=== PATIENT | female | born 1995 | race American Indian/Alaskan Native ===

== ENCOUNTER 2018-01-28 17:05 | Emergency (ER) | payer MEDICAID ==
[2018-01-28 17:26] VITALS: RESP 18; TEMP 99.3
[2018-01-28] MEDS ORDERED: Sodium Chloride 0.9% 1,000 ML IV ONE (18:38)
[2018-01-28] MEDS ORDERED: Alum-Mag Hydrox-Simethicone Susp (30 mL) PO ONE (18:40)
--- NOTE | 2018-01-28 18:51 | C.PDOC ---
History Of Present Illness 22 y/o female presents to the ED complaining of abdominal pain and diarrhea. She has had the pain for the past month and stated she developed diarrhea yesterday. Denies any nausea, vomiting, chest pain, SOB, or fever. LMP was 01/01. Time Seen by Provider: 01/28/18 18:15 Chief Complaint (Nursing): Abdominal Pain History Per: Patient History/Exam Limitations: no limitations Onset/Duration Of Symptoms: Days Current Symptoms Are (Timing): Still Present Associated Symptoms: Diarrhea Past Medical History Reviewed: Historical Data, Nursing Documentation, Vital Signs Vital Signs: Last Vital Signs Temp 99.3 F 01/28/18 17:24 Pulse 68 01/28/18 17:24 Resp 18 01/28/18 17:24 BP 133/83 01/28/18 17:24 Pulse Ox 98 01/28/18 17:24 - Medical History PMH: No Chronic Diseases Surgical History: No Surg Hx Family History: States: No Known Family Hx - Social History Hx Alcohol Use: No Hx Substance Use: No - Immunization History Hx Tetanus Toxoid Vaccination: No Hx Influenza Vaccination: No Hx Pneumococcal Vaccination: No Review Of Systems Except As Marked, All Systems Reviewed And Found Negative. Constitutional: Negative for: Fever, Chills Cardiovascular: Negative for: Chest Pain Respiratory: Negative for: Cough, Shortness of Breath Gastrointestinal: Positive for: Abdominal Pain, Diarrhea. Negative for: Nausea, Vomiting, Hematochezia, Hematemesis Skin: Negative for: Rash Neurological: Negative for: Weakness, Headache Physical Exam - Physical Exam Appears: Well, Non-toxic, No Acute Distress Skin: Warm, Dry, No Rash Head: Atraumatic, Normacephalic Eye(s): bilateral: Normal Inspection, PERRL, EOMI Oral Mucosa: Moist Neck: Normal ROM Chest: Symmetrical Cardiovascular: Rhythm Regular, No Murmur Respiratory: Normal Breath Sounds, No Accessory Muscle Use, Other (No respiratory distress) Gastrointestinal/Abdominal: Soft, Tenderness (epigastric tenderness), No Distention, No Guarding, No Rebound Back: No CVA Tenderness, No Vertebral Tenderness Extremity: Bilateral: Atraumatic, Normal Color And Temperature, Normal ROM Pulses: Left Dorsalis Pedis: Normal, Right Dorsalis Pedis: Normal Neurological/Psych: Oriented x3, Normal Speech ED Course And Treatment - Laboratory Results Result Diagrams: 01/28/18 18:52 01/28/18 18:52 O2 Sat by Pulse Oximetry: 98 (RA) Pulse Ox Interpretation: Normal Medical Decision Making Medical Decision Making: Impression: Gastritis, r/o Plan: - Labs - IV fluids - 20 mg IV Pepcid - 30 ml PO Maalox - Reassess Labs reviewed, K 3.5. (-) Beta-HCG. Urine demonstrates UTI. Will replenish potassium and administer 1 gm IV rocephin. Plan is to discharge patient home on Cipro. Counseled regarding diagnosis and follow up instructions. Disposition Counseled Patient/Family Regarding: Studies Performed, Diagnosis, Need For Followup, Rx Given - Disposition [place] [facility] [place] [facility] [Outside] [facility] [place] [Outside] Disposition: HOME/ ROUTINE Disposition Time: 20:18 Condition: STABLE Additional Instructions: Follow up with medicine clinic and take your meds as directed. Prescriptions: Ciprofloxacin HCl [Cipro] 250 mg PO Q12 5 Days #10 tablet Famotidine [Pepcid] 40 mg PO DAILY #15 tablet Ibuprofen [Motrin] 600 mg PO Q6 #20 tab Instructions: Urinary Tract Infections in Adults, Gastritis Forms: Death by Party (Ukrainian) - POA Present On Arrival: None - Clinical Impression Clinical Impression: Urinary tract infection, Gastritis - Scribe Statement The provider has reviewed the documentation as recorded by the Osmin Ferguson Provider Attestation: All medical record entries made by the Josephineibroel were at my direction and personally dictated by me. I have reviewed the chart and agree that the record accurately reflects my personal performance of the history, physical exam, medical decision making, and the department course for this patient. I have also personally directed, reviewed, and agree with the discharge instructions and disposition.
[2018-01-28] MEDS ORDERED: Aluminum Hydroxide/Magnesium Hydroxide Susp (30 mL) ONE (18:53)
[2018-01-28 18:54] LABS: BASO % 0.5 % (0.0-2.0); EOS # 0.1 K/uL (0.0-0.7); EOS % 0.9 % (0.0-4.0); HEMOGLOBIN 12.5 g/dL (11.0-16.0); LYMPH # 2.9 K/uL (1.0-4.3); LYMPH % 34.2 % (20.0-40.0); MEAN CELL VOLUME 76.6 fL (81.0-99.0); MONO % 11.5 % (0.0-10.0); NEUT # 4.5 K/uL (1.8-7.0); NEUT % 52.9 % (50.0-75.0); NRBC % 0.1 % (0.0-2.0); RBC 4.78 Mil/uL (3.80-5.20); RED CELL DISTRIBUTION WIDTH 13.6 % (11.5-14.5); WHITE BLOOD COUNT 8.4 K/uL (4.8-10.8)
[2018-01-28] MEDS ORDERED: Sodium Chloride 0.9% 1,000 ML ONE (18:54)
[2018-01-28 19:09] LABS: SQUAMOUS EPITHIAL 25 /hpf (0-5); URINE BACTERIA MANY (<OCC); URINE BILIRUBIN NEGATIVE (NEGATIVE); URINE BLOOD 1+ (NEGATIVE); URINE CLARITY Hazy (Clear); URINE COLOR Yellow (YELLOW); URINE GLUCOSE (UA) NORMAL (Normal); URINE LEUKOCYTE ESTERASE 3+ Leu/uL (Negative); URINE PROTEIN NEGATIVE (NEGATIVE); URINE UROBILINOGEN NORMAL mg/dL (0.2-1.0)
[2018-01-28 19:11] LABS: ALB/GLOB RATIO 1.3 (1.0-2.1); ALBUMIN 4.4 g/dL (3.5-5.0); ALT/SGPT 28 U/L (9-52); AST/SGOT 23 U/L (14-36); BLOOD UREA NITROGEN 10 mg/dL (7-17); GFR NON-AFRICAN AMERICAN > 60; LIPASE 100 U/L (23-300)
[2018-01-28] MEDS ORDERED: Potassium Chloride 20 mEq ER Tab PO ONE (20:06)
[2018-01-28] MEDS ORDERED: cefTRIAXone 1 gm 1 GM/100 ML BAG IVPB ONE (20:06)
[2018-01-28] MEDS ORDERED: Potassium Chloride 20 mEq/15 ml LIQ UD PO STA ×2 (20:10→20:13)
[2018-01-28] MEDS ORDERED: Potassium Chloride 20 mEq/15 ml LIQ UD ONE (20:19)
[2018-01-28 21:21] VITALS: BP 109/74; PULSE 90
[2018-01-29] MEDS ORDERED: Potassium Chloride 20 mEq ER Tab PO ONE (19:57)
[2018-01-30 19:46] VITALS: O2SAT 98
== END 2018-01-28 21:21 | disposition home or self-care (01) ==
LOC: C.ER 17:05
DX: K29.70 Gastritis, unspecified, without bleeding (principal); N39.0 Urinary tract infection, site not specified
CPT/HCPCS: 80053; 81001; 83690; 84702; 85025; 87086; 96374; 96375; 99284; J0696; J7030